=== PATIENT | female | born 1995 | race Caucasian/White ===

== ENCOUNTER 2019-04-27 06:22 | Inpatient (IN) | payer BC ==
[2019-04-26 17:44] VITALS: BMI 25.7
[2019-04-27] VITALS (22 sets, daily range): BP systolic 94–137; BP diastolic 47–76; PULSE 74–110; RESP 14–21; Ht 165.1 cm; Wt 73.1 kg
[~2019-04-27] VITALS: Ht 165.1 cm; Wt 73.1 kg
--- NOTE | 2019-04-27 05:16 | HPN ---
Date/Time of Note Date/Time of Note DATE: 04/27/19 TIME: 05:16 Interval H&P Admission Note Pt. seen H&P reviewed: No system changes PINEDA DAVIS MD Apr 27, 2019 05:16
--- NOTE | 2019-04-27 05:20 | OPR ---
Date/Time of Note Date/Time of Note DATE: 04/27/19 TIME: 05:16 Operative Report Procedure Date: Apr 27, 2019 Preoperative Diagnosis Posttraumatic arthritis of the right shoulder Postoperative Diagnosis 1. Posttraumatic arthritis of the right shoulder 2. Right shoulder partial biceps tendon tear Operation/Procedure Performed 1. Right total hemiarthroplasty 2. Right open biceps tenodesis 3. 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 Assistance was necessary as a result of the highly technical nature of this operation. When performing an open total shoulder replacement, it is criti linda to have a trained roofer assistant who is an expert in handling the extremity and assisting the surgeon in tasks such as suture management and knot-tying techniques as well as implants. This assistance cannot be performed by a nuclear monitoring technician, as it is considered an integral part of the procedure and the roofer assistant should be compensated for their time. PROCEDURE IN DETAIL: Following the administration of general anesthesia supplemented with a peripheral nerve block for postoperative pain control, the patient was examined under anesthesia. Examination of the right shoulder revealed very significant stiffness including a forward flexion of about 90 degrees abduction 80 degrees maximal external rotation 60 degrees with severe crepitus. Further, the right antecubital fossa was then sterilely prepped and 60 cc of blood were aspirated from the area. The blood was then passed off to the territory account representative from the company to prepare the PRP solution. The patient was then placed in the beach chair position. Sterile prep and drape was then undertaken. An extended deltopectoral incision was then carried through the interval exposing the conjoined tendon and retracting it medially. The subscapularis was incised and mobilized. There was significant scar tissue encountered from her prior surgical procedures that included an open bony reconstruction of the glenohumeral joint with a subsequent removal of the screws. Severe arthritic changes were noted with very large peripheral osteophytes. Multiple loose bodies were removed from the joint. The biceps tendon was identified and it had moderate fraying within the groove. The intra-articular portion was resected and the biceps was tenodesed to the bicipital groove with solid fixation using multiple #2 sutures. A humeral head osteotomy was then created in the appropriate degree of version and inclination. The 44/28 mm size was the best fit. The glenoid was then evaluated and noted to have good cartilage. Given her age, the decision was made to do only a partial replacement. The subscapularis was also solid. The humerus was then reamed and prepared for an Arthrosurface 44 x 48 mm Ovo. The actual humeral component was implanted after thorough irrigation of the area and injection of the PRP solution. There was solid fixation. The subscapularis was reapproximated using a 5.5 mm, triple laoded titanium anchor. The suture were then passed and a watertight closure of the interval. The arm was taken through full range of motion with no evident instability. The joint was then thoroughly irrigated, the deep tissues were approximated using #1 suture followed by closure of the deep layer using 2-0 Monocryl. The skin was closed using 4-0 Monocryl suture, and a Prenio dressing. An Ultrasling was then applied. The patient was awakened and transported to the recovery room in stable condition. Estimated blood loss for this procedure was 100 cc. Radiographs will be obtained in the recovery room. PINEDA DAVIS MD Apr 27, 2019 05:20
[~2019-04-27 06:22] MED LIST: BUPIVACAINE 0.5% (SDV) 30 ML, morphine SULFATE (PF) 8 MG, EPINEPHrine 0.3 MG, KETOROLAC... IRR SCH; DEXAMETHASONE 1 MG TAB PO ONE; GABAPENTIN 300 MG CAP PO ONE; LACTATED RINGER'S 1,000 ML IV SCH
[2019-04-27] MEDS ORDERED: FENTAnyl 50 MCG/ML VIAL ONE (07:31)
[2019-04-27] MEDS ORDERED: ROCURONIUM 50 MG INJ ONE (07:31)
[2019-04-27] MEDS ORDERED: PROPOFOL 20 ML ONE (07:31)
[2019-04-27] MEDS ORDERED: GLYCOPYRROLATE 0.4 MG INJ ONE (07:31)
[2019-04-27] MEDS ORDERED: CEFAZOLIN 1 GM INJ ONE (07:31)
[2019-04-27] MEDS ORDERED: NEOSTIGMINE 3 MG/3 ML SYRINGE ONE (07:31)
[2019-04-27] MEDS ORDERED: MIDAZOLAM 1 MG/ML 2 ML INJ ONE (07:31)
[2019-04-27] MEDS ORDERED: ROPIVACAINE 0.5 % 30 ML VIAL ONE (07:32)
[2019-04-27] MEDS ORDERED: DEXAMETHASONE 4 MG/ML 5 ML INJ ONE (07:32)
[2019-04-27] MEDS ORDERED: ONDANSETRON 4 MG INJ ONE (07:32)
--- NOTE | 2019-04-27 07:49 | PREAC ---
Date/Time of Note Date/Time of Note DATE: 04/27/19 TIME: 07:47 Anesthesia Eval and Record Evaluation Time Pre-Procedure Interview DATE: 04/27/19 TIME: 07:47 Age 23 Sex female NPO: 8 hrs Preoperative diagnosis RIGHT SHOULDER POST TRAUMATIC OA Planned procedure RIGHT TOTAL SHOULDER ARTHROPLASTY Past Medical History Past Medical History: Includes (CELIAC DISEASE) Surgery & Anesthesia Issues No known issue Meds Anticoagulation: No Beta Maribell within 24 hr: No Reason Beta Maribell not given: Pt. not on B-Maribell Current Medications Cefazolin Sodium/ Dextrose 50 ml @ 100 mls/hr PRE-OP ONCE IVPB ; Start 04/27/19 at 08:00; Stop 04/27/19 at 08:29 Tranexamic Acid 100 ml @ 200 mls/hr Pre-op ONCE IVPB ; Start 04/27/19 at 08:00; Stop 04/27/19 at 08:29 Bupivacaine HCl/ Morphine Sulfate/ Epinephrine/ Ketorolac Tromethamine/ Clonidine/Sodium Chloride/ Vancomycin HCl INTRA-OP IRR ; Start 04/27/19 at 06:00 Lactated Ringer's 1,000 ml @ 0 mls/hr Q0M IV Last administered on 04/27/19at 07:20; Admin Dose 0 MLS/HR; Start 04/27/19 at 06:00; Stop 04/27/19 at 20:00 Meds reviewed: Yes Allergies Coded Allergies: iodine (Verified Allergy, Unknown, 04/27/19) shellfish derived (Verified Allergy, Unknown, 04/27/19) Uncoded Allergies: NARCOTICS (Adverse Reaction, Intermediate, SENSITIVE TO NARCOTICS, 04/24/19) Allergies Reviewed: Yes Labs/Studies Labs Reviewed: Reviewed by anesthesiologist test: Negative Studies: ECG (NL), CXR (NAPD) Pre-procedure Exam Last vitals Vital Signs Date Temp Pulse Resp B/P (MAP) Pulse Ox O2 O2 Flow FiO2 Time Delivery Rate 04/27/19 97.9 81 16 107/67 99 Room Air 07:33 (80) Airway: Adequate mouth opening, Adequate thyromental dist Mallampati: Mallampati II Teeth: Normal Lung: Normal Heart: Normal ASA Physical Status ASA physical status: 1 Emergency: None Planned Anesthetic General/MAC: ETT Nerve block: Brachial plexus (right) Planned Pain Management Single shot nerve block, Parenteral pain med Pre-operative Attestations Prior to commencing anesthesia and surgery, the patient was re-evaluated, there was verification of: *The patient's identity *The results of appropriate recent lab work and preoperative vital signs *The above evaluation not changing prior to induction *Anesthetic plan, risk benefits, alternative and complications discussed with patient/family; questions answered; patient/family understands, accepts and wishes to proceed. Leonard Briceno M.D. Apr 27, 2019 07:49
[2019-04-27] MEDS ORDERED: ONDANSETRON 4 MG INJ IV PRN (08:00)
[2019-04-27] MEDS ORDERED: EPHEDrine 25 MG/5 ML SYG IV PRN (08:00)
[2019-04-27] MEDS ORDERED: OXYCODONE/ACETAMINOPHEN (5/325) TAB PO PRN ×2 (08:00)
[2019-04-27] MEDS ORDERED: CEFAZOLIN 2 GM/50 ML (PMX) 50 ML IVPB ONE (08:00)
[2019-04-27] MEDS ORDERED: hydrALAzine 20 MG INJ IV PRN (08:00)
[2019-04-27] MEDS ORDERED: ALBUTEROL 0.083% (NEB) 2.5 MG/3 ML AMP HHN PRN (08:00)
[2019-04-27] MEDS ORDERED: FENTAnyl 50 MCG/ML VIAL IV PRN ×3 (08:00)
[2019-04-27] MEDS ORDERED: IPRATROPIUM (NEB) 0.5 MG/2.5 ML AMP HHN PRN (08:00)
[2019-04-27] MEDS ORDERED: TRANEXAMIC ACID 1GM/100ML(PMX) 100 ML IVPB ONE ×2 (08:00→10:30)
[2019-04-27] MEDS ORDERED: LABETALOL HCL 20MG INJ IV PRN (08:00)
[2019-04-27] MEDS ORDERED: DIPHENHYDRAMINE 50 MG INJ IV PRN ×2 (08:00→10:30)
[2019-04-27] MEDS ORDERED: MEPERIDINE 25 MG INJ IV PRN (08:00)
[2019-04-27] MEDS ORDERED: TRIMETHOBENZAMIDE 100 MG/ML VIAL IM PRN (08:00)
[2019-04-27] MEDS ORDERED: HYDROmorphONE 1 MG/5 ML IV SYRINGE IV PRN ×3 (08:00)
[2019-04-27] MEDS ORDERED: MIDAZOLAM 1 MG/ML 2 ML INJ IV PRN (08:00)
[2019-04-27] MEDS ORDERED: THROMBIN 5000 UNIT (RECOTHROM) VIAL ONE (09:19)
[2019-04-27] MEDS ORDERED: POLYMYXIN/BACITRACIN 1L IRRIG ONE (09:19)
[2019-04-27] MEDS ORDERED: CA CHLORIDE (GM) 10% 10 ML INJ ONE (09:19)
[2019-04-27] MEDS ORDERED: TRANEXAMIC ACID 1GM/100ML(PMX) 100 ML ONE (09:19)
[2019-04-27] MEDS ORDERED: oxyCODONE 5 MG TAB PO PRN ×3 (10:30)
[2019-04-27] MEDS ORDERED: NACL 0.9% 3 ML SYG IV SCH (10:30)
[2019-04-27] MEDS ORDERED: ZOLPIDEM 5 MG TAB PO PRN (10:30)
[2019-04-27] MEDS ORDERED: LOPERAMIDE 2 MG CAP PO PRN (10:30)
[2019-04-27] MEDS ORDERED: MAGNESIUM HYDROXIDE 30ML CUP PO PRN (10:30)
--- NOTE | 2019-04-27 10:57 | PAC ---
Date/Time of Note Date/Time of Note DATE: 04/27/19 TIME: 10:57 Post-Anesthesia Notes Post-Anesthesia Note Last documented vital signs Vital Signs Date Temp Pulse Resp B/P (MAP) Pulse Ox O2 O2 Flow FiO2 Time Delivery Rate 04/27/19 99.0 110 14 137/76 100 Nasal 3.0 10:44 (96) Cannula Activity: WNL Respiratory function: WNL Cardiovascular function: WNL Mental status: Baseline Pain reasonably controlled: Yes Hydration appropriate: Yes Nausea/Vomiting absent: Yes Leonard Briceno M.D. Apr 27, 2019 10:57
[2019-04-27] MEDS: CEFAZOLIN 1 GM/50 ML (PMX) 50 ML IVPB SCH ×2 (11:03→17:52)
[2019-04-27] MEDS: ACETAMINOPHEN 500 MG TAB PO SCH ×2 (12:16→17:53)
[2019-04-27] MEDS: DEXAMETHASONE 2 MG TAB PO SCH ×2 (12:37→17:52)
[2019-04-27] MEDS: KETOROLAC 15 MG INJ IV PRN ×2 (14:12→22:25)
--- NOTE | 2019-04-27 14:49 | PDOCDIS ---
Discharge Instructions DIAGNOSIS Discharge Diagnosis Shoulder arthritis CONDITION [id number] Patient Condition: [id number] Good HOME CARE INSTRUCTIONS: [id number] Diet Instructions: [id number] Regular ACTIVITY: [id number] Activity Restrictions: [id number] Slowly Increase Activity [id number] Bathing Restrictions: [id number] Shower FOLLOW UP/APPOINTMENTS Follow-up Plan 2 weeks in the office SCHOOL/WORK RELEASE May return to School/Work with: With Restrictions School/Work Release Comment: 5 pound tabletop usage for 6 weeks PINEDA DAVIS MD Apr 27, 2019 14:49
[2019-04-27] MEDS: HYDROmorphONE 1 MG/ML SYG IV PRN ×2 (16:07→20:13)
[2019-04-27] MEDS: ONDANSETRON 4 MG INJ IV PRN ×2 (16:07→22:24)
[2019-04-27] MEDS ORDERED: GABAPENTIN 300 MG CAP PO SCH (21:00)
[2019-04-28] MEDS: DEXAMETHASONE 2 MG TAB PO SCH ×2 (00:14→05:49)
[2019-04-28] MEDS: ACETAMINOPHEN 500 MG TAB PO SCH ×2 (00:15→05:49)
[2019-04-28 00:22] VITALS: BP 91/54; PULSE 77; RESP 18
[2019-04-28] MEDS: CEFAZOLIN 1 GM/50 ML (PMX) 50 ML IVPB SCH (03:28)
[2019-04-28] MEDS: HYDROmorphONE 1 MG/ML SYG IV PRN ×2 (03:28→10:53)
[2019-04-28] MEDS: ONDANSETRON 4 MG INJ IV PRN ×2 (04:16→10:53)
--- NOTE | 2019-04-28 06:18 | PN ---
Date/Time of Note Date/Time of Note DATE: 04/28/19 TIME: 06:17 Subjective Awake and alert with minimal pain. Objective Vitals Vital Signs Date Temp Pulse Resp B/P (MAP) Pulse Ox O2 O2 Flow FiO2 Time Delivery Rate 04/28/19 98.2 77 18 91/54 (66) 95 Room Air 00:22 04/27/19 3.0 11:44 Intake and Output 04/27/19 04/27/19 04/28/19 1515:00 23:00 07:00 IntakeIntake Total 1750 ml 50 ml 400 ml OutputOutput Total 30 ml BalanceBalance 1720 ml 50 ml 400 ml Wound clean and dry. Neurologically intact. No signs of DVT. Medications Medications Current Medications Bupivacaine HCl/ Morphine Sulfate/ Epinephrine/ Ketorolac Tromethamine/ Clonidine/Sodium Chloride/ Vancomycin HCl INTRA-OP IRR ; Start 04/27/19 at 06:00 Senna/Docusate Sodium (Senokot-S) 1 tab BID PO ; Start 04/28/19 at 09:00 Simethicone (Mylicon) 80 mg TID PRN PO .GAS; Start 04/27/19 at 10:30 Magnesium Hydroxide (Milk Of Mag) 30 ml BID PRN PO .CONSTIPATION; Start 04/27/19 at 10:30 Loperamide HCl (Imodium Cap) 2 mg Q6H PRN PO .DIARRHEA; Start 04/27/19 at 10:30 Gabapentin (Neurontin) 300 mg HS PO Last administered on 04/27/19at 20:15; Admin Dose 300 MG; Start 04/27/19 at 21:00 Acetaminophen (Tylenol Tab) 500 mg Q6 PO Last administered on 04/28/19at 05:49; Admin Dose 500 MG; Start 04/27/19 at 12:00 Oxycodone HCl (Roxicodone) 15 mg Q4H PRN PO .PAIN; Start 04/27/19 at 10:30 Oxycodone HCl (Roxicodone) 10 mg Q4H PRN PO .PAIN; Start 04/27/19 at 10:30 Oxycodone HCl (Roxicodone) 5 mg Q4H PRN PO .PAIN; Start 04/27/19 at 10:30 Hydromorphone HCl (Dilaudid) 1 mg Q4H PRN IV .BREAKTHROUGH PAIN Last administered on 04/28/19at 03:28; Admin Dose 1 MG; Start 04/27/19 at 10:30 Ketorolac Tromethamine (Toradol) 15 mg Q6H PRN IV .PAIN Last administered on at 22:25; Admin Dose 15 MG; Start 04/27/19 at 10:30 Ondansetron HCl (Zofran Inj) 4 mg Q6H PRN IV NAUSEA/VOMITING Last administered on 04/28/19at 04:16; Admin Dose 4 MG; Start 04/27/19 at 10:30 Diphenhydramine HCl (Benadryl) 25 mg Q6H PRN IV .PRURITUS; Start 04/27/19 at 10:30 Zolpidem Tartrate (Ambien) 10 mg HS PRN PO .INSOMNIA; Start 04/27/19 at 10:30 IV Flush (NS 3 ml) 3 ml per protocol IV ; Start 04/27/19 at 10:30 VTE Prophylaxis Risk score (from Ns)>0 risk: 6 SCD applied (from Nsg): Yes Lines/Catheters IV Catheter Type: Saline Lock Kiran in Place: No Assessment/Plan Assessment/Plan Assessment: Status post joint replacement Plan: Begin PT this morning discharge when independent PINEDA DAVIS MD Apr 28, 2019 06:18
--- NOTE | 2019-04-28 06:19 | DS ---
Date/Time of Note Date/Time of Note DATE: 04/28/19 TIME: 06:18 Discharge Summary Admission/Discharge Info Admit Date/Time Apr 27, 2019 at 06:22 Discharge Date/Time 04/28/2019 Discharge Diagnosis Shoulder arthritis Patient Condition: Good Hospital Course Admitted, underwent uncomplicated procedure. Postop day 1 stable afebrile discharge home Follow-up Plan 2 weeks in the office Primary Care Provider Not On Staff Doctor PINEDA DAVIS MD Apr 28, 2019 06:18
[2019-04-28 07:48] VITALS: BP 101/53; PULSE 71; RESP 19
[2019-04-28] MEDS: KETOROLAC 15 MG INJ IV PRN (08:31)
[2019-04-28] MEDS ORDERED: SENNA/DOCUSATE NA (8.6MG/50MG) TAB PO SCH (09:00)
== END 2019-04-28 12:35 | disposition home or self-care (01) | DRG 483 ==
LOC: REC 06:22 → MS1 12:08
PROVIDERS: ADMIT Orthopaedic Surgery; ATTEND Orthopaedic Surgery
PROC: 0LS30ZZ Reposition Right Upper Arm Tendon, Open Approach (ICD-10-PCS; 2019-04-27)
PROC: 0RRJ0J6 Replacement of Right Shoulder Joint with Synthetic Substitute, Humeral Surface, Open Approach (ICD-10-PCS; principal; 2019-04-27 08:00)
DX: M12.511 Traumatic arthropathy, right shoulder (principal); S46.811A Strain of other muscles, fascia and tendons at shoulder and upper arm level, right arm, initial encounter; X58.XXXA Exposure to other specified factors, initial encounter
CPT/HCPCS: 81001; 84703; 86999; 97161; C1713; J0171; J0690; J0735; J1100; J1170; J1885; J2250; J2274; J2405; J2710; J2795; J3010; J3370